=== PATIENT | female | born 1965 | race Caucasian/White ===

== ENCOUNTER 2023-07-06 13:53 | Outpatient (CLI) | payer OTHER, SELFPAY | END 2023-07-06 13:54 | disposition home or self-care (01) | LOC: LKVREF 13:55 | PROVIDERS: PCP Family Medicine; Visit Provider Family Medicine | DX: E04.2 Nontoxic multinodular goiter (principal); Z13.29 Encounter for screening for other suspected endocrine disorder | CPT/HCPCS: 84443 ==